=== PATIENT | female | born 1955 | race Caucasian/White ===

== ENCOUNTER 2021-06-25 10:36 | Emergency (ER) | payer OTHER ==
[~2021-06-25] VITALS: Ht 170.2 cm; Wt 68.0 kg
[2021-06-25 10:49] VITALS: BP_SYST 147
--- NOTE | 2021-06-25 10:52 | NUR ---
Patient to ER bed 3 to gown for evaluation. Side rails up. Report given to Jen LAIRD.
--- NOTE | 2021-06-25 10:55 | NUR ---
Dr Law placed orders for patient
[2021-06-25] MEDS ORDERED: BACITRACIN 1 GM OINT TP ONE (11:00)
[2021-06-25] MEDS ORDERED: ACETAMINOPHEN 500 MG TABLET PO ONE (11:00)
--- NOTE | 2021-06-25 11:00 | NUR ---
Pt noted not in room. Per support technician, pt in Xray.
--- NOTE | 2021-06-25 11:10 | NUR ---
Pt alert and oriented x 3. BIBA after mech fall in backyard resulting in R UE, LE and wrist pain. Denies dizziness before fall; denies LOC. Awaiting further dispo.
[2021-06-25] MEDS ORDERED: NAPR-1172 PO (11:42)
[2021-06-25 12:03] VITALS: BP_SYST 147
--- NOTE | 2021-06-25 12:05 | NUR ---
Patient given written and verbal discharge instructions and verbalizes understanding. ER MD discussed with patient the results and treatment provided. Patient in stable condition. ID arm band removed. Rx of Naproxen given. Patient educated on pain management and to follow up with PMD. Pain Scale 2/10. Opportunity for questions provided and answered. Medication side effect fact sheet provided.
== END 2021-06-25 12:03 | disposition home or self-care (01) ==
LOC: SED 10:36
DX: S50.11XA Contusion of right forearm, initial encounter (principal); S80.01XA Contusion of right knee, initial encounter; S09.90XA Unspecified injury of head, initial encounter; Z79.899 Other long term (current) drug therapy; W01.198A Fall on same level from slipping, tripping and stumbling with subsequent striking against other object, initial encounter; Y93.89 Activity, other specified; Y92.89 Other specified places as the place of occurrence of the external cause; Y99.8 Other external cause status
CPT/HCPCS: 70450-TC; 73090; 73560-TC; 76376; 99284